=== PATIENT | male | born 1960 | race American Indian/Alaskan Native ===

== ENCOUNTER 2016-09-12 18:45 | Emergency (ER) | payer SELFPAY ==
[2016-09-12] MEDS ORDERED: ZOFRAN ODT ONE (19:28)
[2016-09-12] MEDS ORDERED: ZOFRAN ODT PO ONE (19:39)
[2016-09-12 20:06] LABS: Basophils % (Auto) 0.5 % (0.0-1.8); Eosinophils % (Auto) 0.3 % (0.0-4.3); Hematocrit 49.7 % (35.5-45.6); Hemoglobin 16.2 gm/dl (11.8-15.2); Mean Corpuscular HGB Conc 33 % (32-34); Mean Corpuscular Hemoglobin 30 pg (28-32); Mean Corpuscular Volume 92 fl (84-94); Platelet Count 296 K/mm3 (140-440); Red Cell Distribution Width 13.6 % (13.2-15.2); White Blood Count 13.1 K/mm3 (4.5-11.0)
[2016-09-12 20:10] LABS: Bilirubin,Urine NEG (Negative); Blood,Urine NEG (Negative); Ketones,Urine 20 mg/dL (Negative); Leukocyte Esterase,Urine NEG (Negative); Mucus,Urine 3+ /HPF; Nitrite,Urine NEG (Negative); Urobilinogen,Urine < 2.0 mg/dL (<2.0)
[2016-09-12] MEDS ORDERED: PROTONIX IV ONE (23:22)
[2016-09-12] MEDS ORDERED: NACL 0.9% 1000 ML 2,000 ML IV ONE (23:22)
[2016-09-12] MEDS ORDERED: ZOFRAN IV ONE (23:22)
--- NOTE | 2016-09-12 23:23 | Emergency Department Report ---
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 He indicates that shortly after starting his trip he began having nausea vomiting diarrhea with cramping abdominal pains. Initially was taking milk of magnesia for the diarrhea before he realized this is making it worse. He stopped taking the milk of magnesia and is subsequently noted the resolution of the diarrhea. He still reports intolerance to by mouth intake however and has a lot of nausea. He describes his pain being mostly in the upper abdomen and somewhat diffuse in nature. He does get some reflux discomfort from acid as well. He denies any radiation of the pain to the back. Denies any specific cholesterol foods or sick contacts. Denies fevers. He reports prior surgery of the hernia repair no other abdominal surgeries reported. Associated Abdominal Pain: Yes Location: LUQ, RUQ, epigastric Severity: moderate - Related Data Previous Rx's Medication Instructions Recorded Last Taken Type Ondansetron [Zofran TAB] 4 mg PO Q8HR PRN #10 tablet 09/13/16 Unknown Rx Ranitidine HCl [Zantac 150 MG TAB] 150 mg PO BID #30 tablet 09/13/16 Unknown Rx Allergies Allergy/AdvReac Type Severity Reaction Status Date / Time No Known Allergies Allergy Verified 09/12/16 19:38 ED Review of Systems ROS: Stated complaint: NAUSEA/VOMITING Other details as noted in HPI Comment: All other systems reviewed and negative Constitutional: weakness. denies: chills, fever Eyes: denies: eye pain, eye discharge, vision change ENT: denies: ear pain, throat pain Respiratory: denies: cough, shortness of breath, wheezing Cardiovascular: denies: chest pain, palpitations Endocrine: no symptoms reported Gastrointestinal: abdominal pain, nausea, vomiting, diarrhea. denies: melena, hematochezia Genitourinary: denies: urgency, dysuria Musculoskeletal: denies: back pain, joint swelling, arthralgia Skin: denies: rash, lesions Neurological: denies: headache, weakness, paresthesias Psychiatric: denies: anxiety, depression Hematological/Lymphatic: denies: easy bleeding, easy bruising ED Past Medical Hx - Past Medical History Previous Medical History?: No - Surgical History Past Surgical History?: No - Social History Smoking Status: Current Some Day Smoker Substance Use Type: None - Medications Home Medications: Home Medications Medication Instructions Recorded Confirmed Last Taken Type Ondansetron [Zofran TAB] 4 mg PO Q8HR PRN #10 tablet 09/13/16 Unknown Rx Ranitidine HCl [Zantac 150 MG TAB] 150 mg PO BID #30 tablet 09/13/16 Unknown Rx ED Physical Exam - General Limitations: No Limitations General appearance: alert, in no apparent distress - Head Head exam: Present: atraumatic, normocephalic - Eye Eye exam: Present: normal appearance, EOMI. Absent: scleral icterus - ENT ENT exam: Present: normal exam, normal orophraynx, mucous membranes moist - Neck Neck exam: Present: normal inspection. Absent: tenderness, lymphadenopathy - Respiratory Respiratory exam: Present: normal lung sounds bilaterally. Absent: respiratory distress - Cardiovascular Cardiovascular Exam: Present: regular rate, normal rhythm. Absent: systolic murmur, diastolic murmur, rubs, gallop - GI/Abdominal GI/Abdominal exam: Present: soft, tenderness (epigastric region without guarding or rebound. Mild tenderness noted also in the left upper right upper quadrant region.), normal bowel sounds. Absent: organomegaly - Rectal Rectal exam: Present: deferred - Extremities Exam Extremities exam: Present: normal inspection - Back Exam Back exam: Present: normal inspection. Absent: tenderness, CVA tenderness (R), CVA tenderness (L) - Neurological Exam Neurological exam: Present: alert, oriented X3 - Psychiatric Psychiatric exam: Present: normal affect, normal mood - Skin Skin exam: Present: warm, dry, intact, normal color. Absent: rash ED Course Vital Signs 09/12/16 19:38 Temperature 99.1 F Pulse Rate 76 Respiratory 16 Rate Blood Pressure 128/97 [Right] O2 Sat by Pulse 100 Oximetry - Reevaluation(s) Reevaluation #1: 09/13/16 01:17 Labs are noted here. Mild white blood cell elevation otherwise unremarkable. Electrolytes are all within normal limits. Abdominal examination is not surgical for me here. He does have persistent epigastric tenderness that is mild in nature without rebound. I suspect part of this is due to dyspepsia. Patient has had several days with ongoing vomiting. He was given antacid here as well as IV fluids. Subjectively he does report some mild improvement with his symptoms at this time. As I have discussed this case further with the patient I feel that he is safe for home with conservative management. We'll have him a very bland shemar gradually advance his diet as tolerated. He has not had any emesis here. I will write for nausea medication for home as well. Patient doesn't agree to return tomorrow if his pain persists or worsens. Otherwise I feel he is safe for home. He will be with his kaycee. ED Medical Decision Making - Lab Data Result diagrams: 09/12/16 19:51 09/12/16 23:35 Critical care attestation.: If time is entered above; I have spent that time in minutes in the direct care of this critically ill patient, excluding procedure time. ED Disposition Clinical Impression: Abdominal pain Qualifiers: Abdominal location: epigastric Qualified Code(s): R10.13 - Epigastric pain Nausea & vomiting Qualifiers: Vomiting type: unspecified Vomiting Intractability: non-intractable Qualified Code(s): R11.2 - Nausea with vomiting, unspecified Disposition: DISCHARGED TO HOME OR SELFCARE Is pt being admited?: No Does the pt Need Aspirin: No Condition: Stable Instructions: Acute Nausea and Vomiting (ED) Additional Instructions: Eat a bland diet. Gradually advance her diet as tolerated. Return if you have any worsening abdominal pains. Prescriptions: Ondansetron [Zofran TAB] 4 mg PO Q8HR PRN #10 tablet PRN Reason: Nausea Ranitidine HCl [Zantac 150 MG TAB] 150 mg PO BID #30 tablet Referrals: DEEPIKA SUERO MD [Staff Physician] - 3-5 Days Time of Disposition: 00:32
[2016-09-13 00:02] LABS: Albumin 4.3 g/dL (3.9-5); Albumin/Globulin Ratio 1.7 %; BUN/Creatinine Ratio 21.33; Bilirubin,Total 0.6 mg/dL (0.1-1.2); Calcium 9.4 mg/dL (8.4-10.2); Chloride 95.6 mmol/L (98-107); Potassium 5.2 mmol/L (3.6-5.0); Total Protein 6.8 g/dL (6.3-8.2)
[2016-09-13 00:53] VITALS: BP 135/94
== END 2016-09-13 00:54 | disposition home or self-care (01) ==
LOC: ED 18:45
DX: R10.13 Epigastric pain (principal); R11.2 Nausea with vomiting, unspecified; F17.200 Nicotine dependence, unspecified, uncomplicated
CPT/HCPCS: 36415; 80053; 81001; 83690; 85025; 96361; 96374; 96375; 99284; C9113; J2405; J7030; Q0162